=== PATIENT | female | born 1945 | race African-American/Black ===

== ENCOUNTER 2020-06-05 08:08 | Day surgery (SDC) | payer MEDICARE ==
[2020-06-04 13:44] VITALS: BMI 14.6
[2020-06-05 08:55] LABS: INR-International Normal Ratio 0.9; Prothrombin Time 12.7 sec (12.0-14.7)
[2020-06-05 08:57] LABS: PTT 29.7 sec (22.9-36.1)
[2020-06-05] MEDS ORDERED: FLU VACC QS2020-21(65YR UP)/PF 240 MCG/0.7 ML SYRINGE IM ONE (09:00)
[2020-06-05] MEDS ORDERED: Fentanyl 100 MCG/2 ML VIAL ONE (09:46)
[2020-06-05] MEDS ORDERED: Midazolam HCl 2 mg/2 ml Vial ONE (09:46)
[2020-06-05] MEDS ORDERED: Sodium Bicarbonate 2.5 MEQ/5 ML VIAL ONE (09:46)
--- NOTE | 2020-06-05 11:28 | RAD ---
EXAM: XR Chest Insp/Exp PROVIDED CLINICAL HISTORY: Post left lower lobe mass lung biopsy COMPARISON: 05/22/2020 FINDINGS: Cardiac silhouette and pulmonary vasculature are within normal limits. Left lower lobe mass is again seen. There is a small left apical pneumothorax. No pleural effusion is seen. Right lung is clear. Vascular calcifications are seen in the thoracic aorta. No other interval change. IMPRESSION: 1. Small left apical pneumothorax. 2. Left lower lobe lung mass
[2020-06-05 11:49] VITALS: BP 174/93; TEMP 97.8
--- NOTE | 2020-06-05 13:41 | RAD ---
EXAM: XR Chest Insp/Exp PROVIDED CLINICAL HISTORY: Left pneumothorax post left lower lobe mass lung biopsy. COMPARISON: 06/05/2020 at 1106 hours. FINDINGS: Previously seen left apical pneumothorax is again noted with tiny pneumothorax at the level of the le ft lower lobe mass which was also seen on prior exam. The left-sided pneumothorax is unchanged compared to prior exam. Left lower lobe mass is again seen. No pleural fluid is seen. Right lung dk ins clear. No other interval change. IMPRESSION: Stable left-sided pneumothorax. Stable left lower lobe mass.
--- NOTE | 2020-06-05 15:51 | RAD ---
EXAM: XR Chest Insp/Exp PROVIDED CLINICAL HISTORY: Left pneumothorax post lung biopsy of left lower lobe mass. Follow-up evaluation. COMPARISON: Prior chest x-rays on 06/05/2020. FINDINGS: Again noted is a small left-sided pneumothorax which is stable compared to prior chest x-rays includi ng chest x-ray at 1106 hours. Left lower lobe mass is again seen. Right lung remains clear. No other interval change. IMPRESSION: 1. Stable left pneumothorax. 2. Left lower lobe mass.
--- NOTE | 2020-06-06 10:26 | CT ---
EXAM: CT Lung Perc Biopsy PROVIDED CLINICAL HISTORY: Left lower lobe mass. Biopsy requested to COMPARISON: CTA chest on 05/15/2020 TECHNIQUE: The procedure including the risks and complications were explained to the patient, and informed conse nt was obtained. Patient was placed on the CT scan table in a left anterior oblique position. Limited noncontrasted CT scan was obtained to the level of the left lower lobe mass with grid localiz er in place. An area was marked and then meticulously prepped and draped in usual sterile fashion. The skin and subcutaneous tissues were infiltrated with buffered 1% lidocaine for local anesthesia at the intended puncture site. Small skin incision was made. A 19-gauge guide needle was advanced followed by axial noncontrasted CT images. This was repeated until the needle was placed at the perip heral margin of the left lower lobe mass. A total of 2 core needle biopsies specimens were obtained utilizing coaxial technique with a 20-gauge biopsy needle. The pathologist requested one additional b iopsy which was performed. The needle was removed, and hemostasis was achieved with direct pressure. A limited CT scan was obtained post biopsy demonstrating a small pneumothorax anteriorly. D ry sterile dressing was placed at puncture site. Patient was transported to radiology nurses holding area for further monitoring. Serial chest x-rays were performed which demonstrate stability of the pneumothorax over successive chest x-rays with final chest x-ray obtained 4 hours post biopsy. The patient remained asymptomatic postbiopsy without left-sided chest pain or shortness of breath. Patient's oxygen saturation was 99-100% throughout her observation. Patient was given the option of overnight observation in the hospital, but the patie nt requested to be discharged home. Specific instructions were provided to the patient and the patient's daughter to return to the hospital immediately if she were to develop shortness of breath o r chest pain. Dr. Henry was notified of these findings at the time of this dictation. The patient will follow-u p with Dr. Henry in one week with chest x-ray scheduled prior to the clinic visit. Patient was discharged in stable condition. IMPRESSION: 1. Left lower lobe mass. 2. Technically successful CT-guided percutaneous biopsy of left lower lobe mass. 3. Small pneumothorax was obtained post biopsy, but the left-sided pneumothorax remained stable over multiple successive chest x-rays imaging out to 4 hours. The patient is scheduled to return in one week for follow-up chest x-ray unless the patient develops chest pain or shortness of breath. If the patient develops these symptoms, she was instructed to return immediately to the emergency department. Transcribed Date/Time: 06/06/2020 10:26 AM
== END 2020-06-05 16:19 | disposition home or self-care (01) ==
LOC: CT 08:08
PROVIDERS: ATTEND Internal Medicine
PROC: 0BBJ3ZX Excision of Left Lower Lung Lobe, Percutaneous Approach, Diagnostic (ICD-10-PCS; principal; 2020-06-05)
DX: C34.32 Malignant neoplasm of lower lobe, left bronchus or lung (principal); J93.9 Pneumothorax, unspecified; M19.90 Unspecified osteoarthritis, unspecified site; I10 Essential (primary) hypertension; F17.200 Nicotine dependence, unspecified, uncomplicated; F10.10 Alcohol abuse, uncomplicated; R63.4 Abnormal weight loss; Z68.1 Body mass index [BMI] 19.9 or less, adult; Z91.19 Patient's noncompliance with other medical treatment and regimen
CPT/HCPCS: 32405; 36415; 71045; 77002; 85610; 85730; 88305; 88313; 88333; 88334; J2250; J3010

== ENCOUNTER 2020-06-12 11:06 | Outpatient (CLI) | payer MEDICARE ==
--- NOTE | 2020-06-12 12:26 | RAD ---
PA AND LATERAL CHEST: Date: 06/12/2020 HISTORY: Follow-up pneumothorax. Comparison made to exam of 06/05/2020, which is a post biopsy exam. That exam revealed a left pneumot horax. FINDINGS: On today's exam, there is a small residual left pneumothorax seen in the left apical region. The pneu mothorax is much smaller than on 06/05/2020. The mass density in the left lower lung is again noted. Right lung remains clear and hyperexpanded. Heart and mediastinum unremarkable and unchanged. IMPRESSION: Small residual left apical pneumothorax. POS: [facility]
== END 2020-06-12 11:07 | disposition home or self-care (01) ==
LOC: RAD 11:06
PROVIDERS: ATTEND Internal Medicine
DX: J95.811 Postprocedural pneumothorax (principal)
CPT/HCPCS: 71046

== ENCOUNTER 2020-07-02 09:14 | Outpatient (CLI) | payer MEDICARE ==
--- NOTE | 2020-07-02 13:04 | PET ---
Radionucleotide PET scan with CT attenuation correction HISTORY: Malignant neoplasm left lower lobe bronchus. Initial staging. FINDINGS: Hypermetabolic activity associated with the large mass at the far anterior aspect of the le ft lower lobe shows max SUV 10.6. No abnormal activity is apparent within the mediastinum or elsewhere within the lungs. A tiny subpleural nodule at the far medial aspect of the right lower lobe is stable and smaller than the threshold for PET detection. Left pleural fluid has resolved. Well-circumscribed homogeneous mass associated with the skin at the right gluteal level is slightly m ore dense than simple fluid and shows a max SUV 2.9. It is 2.3 cm x 1.4 cm greatest diameters on the axial images. Involving contiguous loops of bowel within the right lower quadrant, radiotracer uptake is somewhat g reater than normally seen and certainly localized/asymmetric. No associated mass is apparent. Physiologic uptake of radiotracer throughout the enteric system and along each urinary tract. Nondiagnostic CT attenuation correction images show prominent calcification throughout the arterial s tructures. IMPRESSION : Left lower lobe lung mass is markedly hypermetabolic. No evidence of mediastinal adenopathy or distan t metastasis. The skin based mass at the right gluteal level is slightly hypermetabolic. Please correlate with clin ical findings. Non-masslike, asymmetric increased activity associated with small bowel loops throughout the right lo wer quadrant. Unlikely to be neoplastic. Please correlate clinically regarding possibility of right lower quadrant bowel inflammation. Atherosclerosis.
== END 2020-07-02 09:15 | disposition home or self-care (01) ==
LOC: PET 09:14
PROVIDERS: ATTEND Internal Medicine Hematology & Oncology
DX: C34.32 Malignant neoplasm of lower lobe, left bronchus or lung (principal); R91.8 Other nonspecific abnormal finding of lung field; I70.0 Atherosclerosis of aorta
CPT/HCPCS: 78815; A9552

== ENCOUNTER 2020-07-10 12:30 | Outpatient (CLI) | payer MEDICARE ==
--- NOTE | 2020-07-10 13:34 | MRI ---
MRI OF BRAIN WITH AND WITHOUT CONTRAST: 07/10/20 INDICATIONS: Lung cancer. Blurred vision. No comparison. FINDINGS: The ventricles have normal size and position. Mild chronic ischemic white matter changes are seen in the periventricular white matter and centrum semiovale regions in both cerebral hemispheres. No evide nce of restricted diffusion. There is no evidence of acute infarct. No evidence of mass or edema. No abnormal enhancement identified. Intracranial internal carotid arteries, cerebral arteries and basilar artery demonstrate flow voids. Paranasal sinuses and mastoids are clear. IMPRESSION: 1. Mild chronic ischemic white matter changes. 2. No evidence of acute process. No evidence of metastatic lesion. POS: [facility]
== END 2020-07-10 12:31 | disposition home or self-care (01) ==
LOC: MRI 12:30
PROVIDERS: ATTEND Internal Medicine Hematology & Oncology
DX: C34.32 Malignant neoplasm of lower lobe, left bronchus or lung (principal); H53.8 Other visual disturbances; I67.82 Cerebral ischemia
CPT/HCPCS: 70553; 82565

== ENCOUNTER 2020-11-27 12:33 | Outpatient (CLI) | payer MEDICARE ==
[~2020-11-27 12:33] MED LIST: Iopamidol-370 76% 500 ML 1 ML ONE
[2020-11-27 13:06] LABS: Estimated GFR-MDRD - POC Greater than 90
== END 2020-11-27 12:34 | disposition home or self-care (01) ==
LOC: BICCT 12:33
PROVIDERS: ATTEND Internal Medicine Hematology & Oncology
DX: C34.32 Malignant neoplasm of lower lobe, left bronchus or lung (principal); E27.8 Other specified disorders of adrenal gland; K86.89 Other specified diseases of pancreas; K22.8 Other specified diseases of esophagus; K76.9 Liver disease, unspecified; I70.8 Atherosclerosis of other arteries; Z90.2 Acquired absence of lung [part of]
CPT/HCPCS: 74178; 82565; Q9967

== ENCOUNTER 2020-12-11 09:55 | Outpatient (CLI) | payer MEDICARE | END 2020-12-11 09:56 | disposition home or self-care (01) | LOC: PET 09:55 | PROVIDERS: ATTEND Internal Medicine Hematology & Oncology | DX: C34.32 Malignant neoplasm of lower lobe, left bronchus or lung (principal); C79.72 Secondary malignant neoplasm of left adrenal gland; R22.2 Localized swelling, mass and lump, trunk | CPT/HCPCS: 78815; A9552 ==

== ENCOUNTER 2020-12-24 08:10 | Day surgery (SDC) | payer MEDICARE ==
[2020-12-18 15:36] VITALS: BMI 14.5
[2020-12-24 09:13] LABS: PTT 28.8 sec (22.9-36.1); Prothrombin Time 13.6 sec (12.0-14.7)
[2020-12-24 09:21] LABS: #Basophils 0.1 thou/uL (0.0-0.2); #Eosinphils 0.6 thou/uL (0.0-0.7); #Lymphocytes 2.6 thou/uL (1.20-3.40); #Monocytes 0.6 thou/uL (0.11-0.59); #Neutrophils 4.3 thou/uL (1.40-6.50); %Basophils 1.1 % (0.0-1.0); %Lymphocytes 32.3 % (21.0-51.0); %Monocytes 6.8 % (0.0-10.0); %Neutrophils 52.8 % (42.0-75.0); Hemoglobin 13.7 g/dL (12.0-16.0); MDiff Complete? YES; Macrocytosis SLIGHT = 6-15 cells (100X) (0-5/hpf); Mean Corpuscular HGB CONC 32.5 g/dL (32.0-36.0); Mean Corpuscular Hemoglobin 34.7 pg (27.0-31.0); Mean Platelet Volume 7.2 fL (7.4-10.4); Platelet Count 392 thou/uL (130-400); Platelet Morphology Comment Appears Adequate; RBC Distribution Width 14.3 % (11.5-14.5); Red Blood Cell (RBC) Count 3.94 mill/uL (4.20-5.40); White Blood Cell (WBC) Count 8.2 thou/uL (4.8-10.8)
[2020-12-24 11:41] VITALS: BP 152/78; TEMP 97.6
== END 2020-12-24 13:35 | disposition home or self-care (01) ==
LOC: CT 08:10
PROVIDERS: ATTEND Internal Medicine Hematology & Oncology
PROC: 0GB23ZX Excision of Left Adrenal Gland, Percutaneous Approach, Diagnostic (ICD-10-PCS; principal; 2020-12-24)
DX: C80.1 Malignant (primary) neoplasm, unspecified (principal); C79.72 Secondary malignant neoplasm of left adrenal gland; C34.32 Malignant neoplasm of lower lobe, left bronchus or lung; I10 Essential (primary) hypertension; M19.90 Unspecified osteoarthritis, unspecified site; E78.5 Hyperlipidemia, unspecified; Z87.891 Personal history of nicotine dependence; Z79.02 Long term (current) use of antithrombotics/antiplatelets; Z79.82 Long term (current) use of aspirin; Z79.899 Other long term (current) drug therapy; Z90.2 Acquired absence of lung [part of]
CPT/HCPCS: 49180; 77012; 85025; 85610; 85730; 88305; 88333; 88341; 88342

== ENCOUNTER 2021-03-31 09:00 | Day surgery (SDC) | payer MEDICARE ==
[2021-03-27 13:58] VITALS: BMI 15.0
[2021-03-31] MEDS ORDERED: Lidocaine 1% w/Epinephrine 1:100K 30 ML VIAL ONE (10:55)
[2021-03-31] MEDS ORDERED: Bupivacaine 0.25% HCL 30 ML VIAL ONE (10:55)
[2021-03-31] MEDS ORDERED: Fentanyl 100 MCG/2 ML VIAL ONE (10:59)
[2021-03-31] MEDS ORDERED: Propofol 500 MG/50 ML VIAL ONE (10:59)
== END 2021-03-31 13:15 | disposition home or self-care (01) ==
LOC: SDC 09:00
PROVIDERS: ATTEND Surgery
PROC: 0JH60WZ Insertion of Totally Implantable Vascular Access Device into Chest Subcutaneous Tissue and Fascia, Open Approach (ICD-10-PCS; principal; 2021-03-31)
PROC: 02HV33Z Insertion of Infusion Device into Superior Vena Cava, Percutaneous Approach (ICD-10-PCS; 2021-03-31)
DX: C34.90 Malignant neoplasm of unspecified part of unspecified bronchus or lung (principal); I11.0 Hypertensive heart disease with heart failure; I50.9 Heart failure, unspecified; Z79.02 Long term (current) use of antithrombotics/antiplatelets; Z79.82 Long term (current) use of aspirin; Z79.899 Other long term (current) drug therapy; Z90.2 Acquired absence of lung [part of]
CPT/HCPCS: 36561; 71045; C1788; J0690; J1642; J2704; J3010; S0020